=== PATIENT | female | born 1995 | race Caucasian/White ===

== ENCOUNTER 2018-03-30 16:09 | Outpatient (CLI) | END 2018-03-30 21:00 | disposition home or self-care (01) ==

== ENCOUNTER 2018-03-30 21:16 | Emergency (ER) | END 2018-03-30 22:40 | disposition home or self-care (01) ==

== ENCOUNTER 2019-01-20 20:36 | Emergency (ER) | payer MEDICAID ==
[~2019-01-20] VITALS: Ht 167.6 cm; Wt 81.9 kg
[~2019-01-20 20:36] MED LIST: ACYC800T5 PO; PNV11TAB PO; PRED20TA PO
[2019-01-20 20:38] VITALS: Ht 167.6 cm; Wt 81.9 kg
[2019-01-20 22:57] VITALS: BP 109/66; PULSE 82; RESP 19
--- NOTE | 2019-01-21 04:38 | ERD ---
ER Documentation Chief Complaint Chief Complaint LEFT SIDED FACIAL NUMBNESS/EAR PAIN; HX OF BELLS PALSY HPI This is a 23-year-old female presenting to the emergency department complaining of left side facial droop, decreased sensation, changes in her taste for the past 1 day. 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 Patient tried no medication for relief of symptoms. She denies any fevers, chills, unilateral body weakness, or other symptoms at this time. ROS All systems reviewed and are negative except as per history of present illness. Medications Home Meds Active Scripts Acyclovir* (Zovirax*) 800 Mg Tablet, 800 MG PO 5 TIMES DAILY for 7 Days, TAB Prov:VIELKA BORDEN PA-C 01/20/19 Prednisone* (Prednisone*) 20 Mg Tab, 40 MG PO DAILY for 4 Days, TAB Prov:VIELKA BORDEN PA-C 01/20/19 Reported Medications [id number] ( 19) 1 Each Tablet, 1 TAB PO DAILY, TAB 03/30/18 Allergies Allergies: Coded Allergies: No Known Allergy (Unverified , 03/30/18) PMhx/Soc Medical and Surgical Hx: pt denies Medical Hx, pt denies Surgical Hx Hx Alcohol Use: No Hx Substance Use: No Hx Tobacco Use: No Smoking Status: Never smoker FmHx Family History: No diabetes Physical Exam Vitals Vital Signs Date Temp Pulse Resp B/P (MAP) Pulse Ox O2 O2 Flow FiO2 Time Delivery Rate 01/20/19 98.3 82 19 109/66 98 Room Air 22:57 (80) 01/20/19 98.6 93 19 116/64 97 20:38 (81) Physical Exam Const: No acute distress Head: Atraumatic Eyes: Normal Conjunctiva ENT: Normal External Ears, Nose and Mouth. Neck: Full range of motion. No meningismus. Resp: Clear to auscultation bilaterally Cardio: Regular rate and rhythm, no murmurs Abd: Soft, non tender, non distended. Normal bowel sounds Skin: No petechiae or rashes Back: No midline or flank tenderness Ext: No cyanosis, or edema Neuro: Unable to puff out cheeks on the left side, decreased sensation on the left side, unable to wrinkle the forehead on the left side of the face, loss of nasolabial folds on the left side of the face. M/S: Alert and oriented Face: EOMI, face and pharynx with normal sensation and function Motor: Normal strength throughout Sensation: Normal sensation throughout Speech: Normal Cerebel: Normal coordination Normal gait Psych: Normal Mood and Affect Procedures/MDM 23-year-old female presenting with signs and symptoms most consistent with Novak's palsy. Much lower suspicion for CVA, TIA, intracranial hemorrhage, intracranial mass, or other emergencies. Patient stable and appropriate for d ischarge and further outpatient management with prescriptions. She was advised to return here immediately for concerning or new symptoms. She understands and agrees with the diagnosis, plan company for follow-up, return precautions. Departure Diagnosis: Primary Impression: Novak's palsy Condition: Fair Patient Instructions: Novak's Palsy [facility] Usted se navarrete hecho un examen mdico de control que le indica que no est en paula condicin que requiera tratamiento urgente en el Departamento de Emergencia. Un estudio ms profundo y el tratamiento de bravo condicin pueden esperar sin ningn riesgo hasta que usted sea atendida/o en el consultorio de bravo mdico o paula clnica. Es responsabilidad suya arreglar paula radha para el seguimiento del krystle. MANEJO DE CONDICIONES NO URGENTES EN EL FUTURO 1) Si usted tiene un mdico de atencin primaria: Usted debera llamar a bravo mdico de atencin primaria antes de venir al departamento de emergencia. Despus de las horas de consultorio, bravo doctor o bravo asociado/a est disponible por telfono. El mdico o enfermero de roman en el servicio telefnico puede asesorarle por tena medio para atender el problema, o krystle contrario se puede programar paula radha. 2) Si usted no tiene un mdico de atencin primaria: Llame al mdico o clnica de referencia que aparece abajo lesly las horas de consultorio para hacer paula radha para que le vean. CLINICAS: [facility] [phone] [facility] [phone] [facility] [phone] [place] [id number] [phone] [facility]. [place] [phone] [facility]. [phone] [address] Additional Instructions: Llame al doctor MAANA y erin paula RADHA PARA DENTRO DE 1-2 CONTI.Dgale a la secretaria que nosotros le instruimos hacer esta radha.Avise o llame si bravo condicin se empeora antes de la radha. Regresa aqui si peor o no mejor. VIELKA BORDEN PA-C Jan 21, 2019 04:38
== END 2019-01-20 22:59 | disposition home or self-care (01) ==
LOC: FTE 20:36
DX: G51.0 Bell's palsy (principal)
CPT/HCPCS: 99283